=== PATIENT | male | born 1965 | race Caucasian/White ===

== ENCOUNTER → 2017-11-09 | Outpatient (CLI) | payer OTHER ==
[~2017-11-09] MED LIST: ALLO300T2 PO; ALPR-411 PO; CITA40TA12 PO; GLC/500 PO; HYDR5TAB27 PO; LISI-787 PO; SIMV20TA5 PO; ZOLP10TA PO
--- NOTE | 2017-11-09 11:58 | DIAGNOSTIC IMAGING REPORT ---
CHEST 2 VIEWS ROUTINE CLINICAL HISTORY: Preoperative evaluation. COMPARISON STUDY: Chest radiograph March 26, 2013. FINDINGS: Lung volumes are normal. No pneumothorax or pleural effusion is noted. There is no consolidation or evidence for pulmonary edema. Left lung airspace opacity shown on exam of March 26, 2013 has resolved. Cardiomediastinal silhouette is normal. IMPRESSION: No acute cardiopulmonary findings. Electronically signed by: Ruben Boland M.D. 11/09/2017 11:56 AM Dictated Date/Time: 11/09/2017 11:56 AM
== END | disposition home or self-care (01) ==
LOC: C.CPL 10:56
PROVIDERS: ATTEND Family Medicine
DX: Z01.818 Encounter for other preprocedural examination (principal); Z01.810 Encounter for preprocedural cardiovascular examination; Z01.812 Encounter for preprocedural laboratory examination